=== PATIENT | male | born 1970 | race Caucasian/White ===

== ENCOUNTER 2019-01-03 14:11 | Day surgery (SDC) | payer OTHER ==
[~2019-01-03] VITALS: Ht 172.7 cm; Wt 72.9 kg
[2019-01-03] MEDS ORDERED: LACTATED RINGERS 1,000 ML IV SCH (15:05)
[2019-01-03] MEDS ORDERED: PLEASE ENTER HEIGHT AND WEIGHT MC SCH (15:09)
[2019-01-03 15:11] VITALS: BP 125/79
[2019-01-03 15:15] VITALS: BP 125/79
[2019-01-03 15:46] LABS: BASOPHILS # (AUTO) 0.02 x10^3/uL (0-0.1); BASOPHILS % (AUTO) 0 % (0-1); EOSINOPHILS # (AUTO) 0.09 x10^3/uL (0-0.4); EOSINOPHILS % (AUTO) 2 % (1-7); LYMPHOCYTES # (AUTO) 1.41 x10^3/uL (1-3.4); LYMPHOCYTES % (AUTO) 28 % (22-44); MD NO; MEAN CORPUSCULAR HEMOGLOBIN 32.3 pg (27.5-34.5); MEAN CORPUSCULAR HGB CONC 33.7 g/dL (33.2-36.2); MEAN PLATELET VOLUME 9.9 fL (7.4-10.4); MONOCYTES # (AUTO) 0.46 x10^3/uL (0.2-0.8); MONOCYTES % (AUTO) 9 % (2-9); NEUTROPHILS # (AUTO) 3.16 x10^3/uL (1.8-6.8); NEUTROPHILS % (AUTO) 61 % (42-75); PLATELET COUNT 158 x10^3/uL (130-400); RED BLOOD COUNT 4.76 x10^6/uL (4.38-5.82); RED CELL DISTRIBUTION WIDTH 13.6 % (9.4-14.8)
[2019-01-03 15:58] LABS: ALBUMIN 4.3 g/dL (3.4-5.0); ANION GAP 7 mmol/L (5-15); CALCIUM 9.1 mg/dL (8.5-10.1); CHLORIDE 106 mmol/L (98-107)
[2019-01-03 16:01] LABS: ALANINE AMINOTRANSFERASE 23 U/L (12-78); ALKALINE PHOSPHATASE 51 U/L (45-117); CREATININE 0.91 mg/dL (0.7-1.3); TOTAL PROTEIN 7.5 g/dL (6.4-8.2)
[2019-01-03] MEDS ORDERED: PROPOFOL 50 ML ONE (16:16)
[2019-01-03] MEDS ORDERED: MIDAZOLAM 1 MG/ML, 2ML ONE ×2 (16:16→16:17)
[2019-01-03] MEDS ORDERED: FENTANYL PF 250 MCG/5ML ONE (16:16)
[2019-01-03] MEDS ORDERED: FENTANYL PF 100 MCG/2ML ONE (16:17)
[2019-01-03] MEDS ORDERED: BUPIVACAINE LIPOSOME/PF 10ML INFIL ONE (16:22)
[2019-01-03] MEDS ORDERED: PROPOFOL 10 MG/ML, 20ML ONE (16:43)
[2019-01-03] MEDS ORDERED: ONDANSETRON 2MG/ML, 2ML ONE (16:43)
[2019-01-03] MEDS ORDERED: DEXAMETHASONE 4 MG/ML, 1ML ONE (16:43)
[2019-01-03] MEDS ORDERED: ROCURONIUM 10 MG/ML,10ML ONE (16:43)
[2019-01-03] MEDS ORDERED: PROMETHAZINE 25 MG/ML, 1ML IV PRN (17:00)
[2019-01-03] MEDS ORDERED: EPHEDRINE 50 MG/ML, 1ML IM PRN (17:00)
[2019-01-03] MEDS ORDERED: FENTANYL PF 100 MCG/2ML IV PRN (17:00)
[2019-01-03] MEDS ORDERED: MIDAZOLAM 1 MG/ML, 2ML IV PRN (17:00)
[2019-01-03] MEDS ORDERED: MEPERIDINE/PF 25MG/0.5ML IVPush PRN (17:00)
[2019-01-03] MEDS ORDERED: ONDANSETRON 2MG/ML, 2ML IV PRN (17:00)
[2019-01-03] MEDS ORDERED: OXYcodone 5 MG/5 ML ORAL.SOL UDC PO PRN (17:00)
[2019-01-03] MEDS ORDERED: METOPROLOL 1 MG/ML, 5ML IV PRN (17:00)
[2019-01-03] MEDS ORDERED: hydrALAzine 20 MG/ML, 1ML IV PRN (17:00)
[2019-01-03] MEDS ORDERED: DIPHENHYDRAMINE 50 MG/ML, 1ML IVPush PRN (17:00)
[2019-01-03] MEDS ORDERED: DIAZEPAM 5 MG/ML, 2ML IVPush PRN (17:00)
[2019-01-03] MEDS ORDERED: HYDROmorphone 2 MG/ML, 1ML IVPush PRN (17:00)
[2019-01-03] MEDS ORDERED: ONDANSETRON ODT 8 MG PO PRN (17:00)
[2019-01-03] MEDS ORDERED: EPHEDRINE 50 MG/ML, 1ML IVPush PRN (17:00)
[2019-01-03] MEDS ORDERED: OXYcodone 5 MG/5 ML ORAL.SOL UDC ONE (17:37)
[2019-01-03] MEDS ORDERED: HYDROmorphone 2 MG/ML, 1ML ONE (18:04)
== END 2019-01-03 19:15 | disposition home or self-care (01) ==
LOC: OR 14:11 → 4NOR 18:20 → OR 19:15
PROVIDERS: ATTEND Surgery
DX: K64.2 Third degree hemorrhoids (principal); K64.4 Residual hemorrhoidal skin tags; K62.82 Dysplasia of anus; Z72.89 Other problems related to lifestyle
CPT/HCPCS: 36415; 46255; 80053; 85025; 88304; 93005; J1100; J1170; J2250; J2405; J2704; J3010; J7120; G0378